=== PATIENT | male | born 1935 | race African-American/Black ===

== ENCOUNTER 2016-11-04 21:39 | Inpatient (IN) ==
[2016-11-04] MEDS ORDERED: amLODIPine 5 MG TABLET PO STA (22:47)
[2016-11-04 22:52] LABS: Basophils % 0.2 % (0.0-0.8); Eosinophils % 0.5 % (0.00-10.9); Hematocrit 35.2 VOL% (42.0-52.0); Hemoglobin 11.5 GM/DL (14.0-18.0); Immature Granulocytes % 0.5 %; Immature Granulocytes Absolute 0.03 #; Lymphocytes # 1.4 10*3/uL (1.4-4.0); Lymphocytes % 23.1 % (21.2-54.2); Mean Corpuscular HGB Conc 32.7 GM/DL (32-36); Mean Corpuscular Hemoglobin 30 PG (27-34); Mean Corpuscular Volume 90.3 FL (87-102); Mean Platelet Volume 10.1 FL (9.6-12.0); Monocytes # 0.9 10*3/uL (0.11-0.8); Monocytes % 14.9 % (1.7-12.7); Neutrophils # 3.7 10*3/uL (1.4-7.4); Neutrophils % 60.8 % (38.7-73.9); Platelet Count 192 T/CUMM (130-400); Red Cell Distribution Width 14.3 % (9.3-17.3)
[2016-11-04] MEDS ORDERED: amLODIPine 5 MG TABLET ONE (23:08)
[2016-11-04 23:10] LABS: Alanine Aminotransferase 18 U/L (16-61); Albumin 3.4 G/DL (3.4-5.0); Alkaline Phosphatase 96 U/L (45-117); Aspartate Amino Transferase 14 U/L (0-37); Bilirubin,Total < 0.39 MG/DL (0.2-1.0); Blood Urea Nitrogen 12 MG/DL (7-18); Glucose 100 MG/DL (74-106); Osmolality,Calculated 276.5 MOS/KG (273-304); Potassium 3.7 MMOL/L (3.5-5.1); Sodium 139 MMOL/L (136-145); Total Protein 7.7 G/DL (6.4-8.3)
[2016-11-04 23:20] LABS: Troponin I Only < 0.015 NG/ML (0.00-0.045)
[2016-11-04 23:43] LABS: Apearance,Urine CLEAR (Clear); Bilirubin,Urine Negative (Negative); Blood, Urine Small mg/dL (Negative); Glucose,Urine (UA) Negative (Negative); Ketones,Urine Negative (Negative); Mucus,Urine Occasional /LPF (Occasional); Nitrite,Urine Negative (Negative); Protein,Urine 30 MG/DL; RBC,Urine 3 /HPF (0-4); Squamous Epithelial Cell,Urine Occasional /HPF (0-10); Urine Color Yellow (Yellow); Urine Specific Gravity 1.017 (1.001-1.035); Urine Urobilinogen < 2.0 EU/DL (0.2-1.0); WBC,Urine <1 /HPF (0-6)
--- NOTE | 2016-11-05 03:01 | Hospitalist History & Physical ---
Assessment and Plan (1) Acute encephalopathy Status: Acute Current Visit: Yes (2) Seizure disorder Status: Acute Current Visit: Yes (3) Hypertension Status: Acute Current Visit: Yes Qualifiers: Hypertension type: essential hypertension Qualified Code(s): I10 - Essential (primary) hypertension (4) Anemia of chronic disease Status: Acute Assessment and plan: Plan: Admit for workup of encephalopathy including TSH, ammonia level. We will also pursue stroke workup, and neurological evaluation Wound care to address the lower extremities Continue Dilantin, currently subtherapeutic level Infectious workup unremarkable thus far Current Visit: Yes History of Present Illness Chief complaint: Brought in by family due to worsening mental status History of present illness: Mr. Nunez is a 81 year old male with hypertension, seizure disorder, who is brought by family due to acute worsening of mental status over the last 2 days. The patient provides no history due to significant drowsiness at the bedside. I spoke with the son who states that prior to 2 days ago the patient was in his "normal state of health." He was able to walk and perform his ADLs without difficulty. For the last 2 days apparently he has been very somnolent, not getting out of the bed, and can barely walk on his own. They deny history of dementia, however they think they may have noticed a slight twisting frame changer the last several months and the way he acts. No report of fever, chills, chest pain , shortness of breath, nausea vomiting or diarrhea. He is not eating very much. He does not complain of pain. No witnessed seizures. He is subtherapeutic on Dilantin. Infectious workup in the ER was largely unremarkable. Review of old CT report shows he may have had lacunar infarcts in the past. Home Medications Medication Instructions Recorded Confirmed Type Metoprolol Tartrate 25 mg PO DAILY 11/04/16 11/05/16 History Phenytoin ER Cap [Dilantin Cap] 100 mg PO QID 11/04/16 11/05/16 History Tamsulosin [Flomax] 0.4 mg PO DAILY 11/04/16 11/05/16 History risperiDONE [Risperidone] 0.25 mg PO DAILY 11/04/16 11/05/16 History Allergies Allergy/AdvReac Type Severity Reaction Status Date / Time No Known Allergies Allergy Verified 11/04/16 21:45 Medical,Surgical,& Family Hx - Medical History Cardio: History of: Hypertension Neurology: History of: Seizures Endocrine: No history of: Diabetes Mellitus (NIDDM) Respiratory: No history of: COPD - Surgical History Additional Surgical History: Denies prior surgery - Family History Family History: Reports;: Family Hypertension - Social History Smoking Status: Never smoker Frequency of Alcohol Use: None Type of Drug Use: None Marital Status: Lives With:: Children Functional capacity: independent ambulation Review of systems: Unable to obtain from patient due to obtundation Exam - Constitutional Vitals: Period Temp Pulse Resp BP Sys/Wen Pulse Ox Last 24 Hr 99.9 F-99.9 F 49-62 16-18 167-215/80-90 96-100 Exam: EXAM: CONSTITUTIONAL: Drowsy, arousable to vocal and tactile stimuli, non toxic, NAD HEENT: Bitemporal wasting, AT, OP benign, EWA, EOMI CV: Bradycardic, regular, no m/g/r RESP: clear B/L, no w/r/r GI: abd soft, NT, ND, +bowel sounds INTEGUMENTARY: Multiple ulcers on the distal right lower extremity in various stages of healing EXTREMITIES: no c/c/e NEURO: no focal deficits PSYCH: unremarkable, A/O x3 Results - Labs CBC & BMP: 11/04/16 22:00 11/04/16 22:00 Lab Results: I have reviewed the past 24 hour labs - Diagnostic Findings Procedure: CT: image reviewed by me, report reviewed by me
[2016-11-05] MEDS ORDERED: MORPHINE 2 MG/1 ML SYRINGE IV PRN (03:02)
[2016-11-05] MEDS ORDERED: ONDANSETRON 4 MG/2 ML VIAL IV PRN (03:02)
[2016-11-05] MEDS ORDERED: ACETAMINOPHEN 325 MG TABLET PO PRN (03:02)
[2016-11-05 03:25] LABS: Barbiturates Screen,Urine Negative (Negative); Benzodiazepines Screen,Urine Negative (Negative); Cannabinoid Screen,Urine Negative (Negative); Opiate Screen,Urine Negative (Negative); Phencyclidine Screen,Urine Negative (Negative)
--- NOTE | 2016-11-05 04:06 | Emergency Department Note ---
IKarla Mantricia, am scribing for, and in the presence of, Sandy Mancini DO 22:52. I, Sandy Mancini DO, personally performed the services described in this documentation, ascribed by Yoanna Acosta in my presence, and it is both accurate and complete . Arrival - Arrival Chief Complaint: Altered Mental Status Stated Complaint: DIZZY/STUMBLING ED Nursing Triage Note: C/O Generalized weakness/stumbling when walking/slurred speech for 2 days per family member. Family member reports that he seems to be getting worse- Reports that this has happened once before when he had a UTI. Pt is nonverbal at time of triage Mode of Arrival: Wheelchair Limitations: No Limitations Source: Patient, Family - History of Present Illness HPI Narrative: Pt is a 81 y/o black male arriving to ED via wheelchair for evaluation of AMS that onset 2 days ago. Family reports that pt has had slurred speech, hallucinations, and generalized weakness. He states that pt has had similar sxs once before when he was Dx with an UTI. Pt has slept all day and has been hard to awaken. Family also reports that pt had a head injury about 8 years ago and has been taken a lot of medications since then. Pt is able to verbalize that he is not in any pain. He has a PMHx of seizures with his last one being a year ago. Pt has had a BM today and has only drank one glass of water. At time of exam, pt's blood pressure is 226/90; he us currently taking Metoprolol. No other complaints were reported to ED. Onset (ago): day(s) Consistency: constant Severity: mild Allergies/Adverse Reactions: Allergies Allergy/AdvReac Type Severity Reaction Status Date / Time No Known Allergies Allergy Verified 11/04/16 21:45 Home Medications: Home Medications Medication Instructions Recorded Confirmed Type Metoprolol Tartrate 25 mg PO DAILY 11/04/16 11/04/16 History Phenytoin ER Cap [Dilantin Cap] 100 mg PO QID 11/04/16 11/04/16 History Tamsulosin [Flomax] 0.4 mg PO DAILY 11/04/16 11/04/16 History risperiDONE [Risperidone] 0.25 mg PO DAILY 11/04/16 11/04/16 History Review of System - Review of System 12 point system: reviewed and no additional remarkable complaints except as stated - Review of System Constitutional: Present: other (AMS) Respiratory: Absent: cough Gastrointestinal: Absent: abdominal pain, nausea, vomiting, diarrhea Genitourinary male: Absent: urgency Neurological: Present: confusion. Absent: headache, weakness, numbness Medical,Surgical,& Family Hx - Medical History Cardio: History of: Hypertension - Social History Smoking Status: Never smoker Frequency of Alcohol Use: None Type of Drug Use: None Exam Vital Signs: Vital Signs Temperature 99.9 F H 11/04/16 22:00 Pulse Rate 51 L 11/05/16 01:30 Respiratory Rate 16 11/05/16 01:30 Blood Pressure 198/90 11/05/16 01:30 O2 Sat by Pulse Oximetry 100 11/05/16 01:30 - General General appearance: alert, in no apparent distress - Head Head exam: Present: atraumatic, normocephalic, normal inspection, other (dent on right side of head) - Eye Eye exam: Present: normal appearance, PERRL, EOMI - ENT ENT exam: Present: normal exam, normal oropharynx, mucous membranes moist, TM's normal bilaterally, normal external ear exam - Neck Neck exam: Present: normal inspection, full ROM, trachea midline. Absent: tenderness - Chest Chest inspection: Present: normal inspection, symmetric chest wall rise. Absent : tenderness - Respiratory Respiratory exam: Present: normal lung sounds bilaterally - Cardiovascular Cardiovascular exam: Present: regular rate, normal rhythm, normal heart sounds - Abdominal Exam Abdominal exam: Present: soft, normal bowel sounds. Absent: distention, tenderness, guarding, rebound - Extremities Exam Extremities exam: Present: normal inspection, full ROM, normal capillary refill. Absent: tenderness, pedal edema - Back Exam Back exam: Present: normal inspection, full ROM. Absent: tenderness - Neurological Exam Neurological exam: Present: alert, oriented X3 (only to person), CN II-XII intact, reflexes normal, other (mild facial droop) - Psychiatric Psychiatric exam: Present: normal affect, normal mood - Skin Skin exam: Present: warm, dry, intact, normal color Course Course Narrative: intiially my concern was CVA vs sepsis (UTI) however labs are unremarkable and CT is normal. considered progressing dementia. Given option to family to take home vs admit overnight for further workup and they report they prefer admission. Hospitalist consulted. Results - Labs CBC & BMP: 11/04/16 22:00 11/04/16 22:00 Lab Results: I have reviewed the patients labs Labs: Laboratory Tests 11/04/16 11/04/16 11/04/16 22:00 22:00 22:00 Hgb 11.5 L Hct 35.2 L Mitchell % (Auto) 14.9 H Mitchell # (Auto) 0.9 H Globulin 4.3 H Albumin/Globulin Ratio 0.7 L Urine Urobilinogen < 2.0 H - EKG EKG results: interpreted by VETO SANCHEZL - Diagnostic Findings Procedure: CT: image reviewed by me, report reviewed by me (CT head unremarkable ) Disposition Clinical Impression: Altered mental status Case discussed with: patient, patient's family Disposition: Still a Patient Condition: Stable
[2016-11-05 05:01] LABS: ABG Base Excess 2.2 MMOL/L (-2.5-2.5); ABG HCO3 26.3 MMOL/L (20-26); ABG Oxygen Saturation 90.3 % (95-100); ABG PH 7.455 (7.35-7.45); ABG PO2 57.8 MM HG (80-95); ABG TCO2 23.5 MMOL/L (23-27); Allen Test Positive; Pt O2 Delivery Device Room Air
[2016-11-05] MEDS: ENOXAPARIN 40 MG/0.4 ML SYRINGE SUBCUT SCH (05:45)
[2016-11-05 06:22] LABS: Basophils % 0.3 % (0.0-0.8); Eosinophils # 0.1 10*3/uL (0.0-0.87); Hematocrit 33.5 VOL% (42.0-52.0); Hemoglobin 10.6 GM/DL (14.0-18.0); Immature Granulocytes % 0.3 %; Immature Granulocytes Absolute 0.02 #; Lymphocytes # 1.5 10*3/uL (1.4-4.0); Mean Corpuscular HGB Conc 31.6 GM/DL (32-36); Mean Corpuscular Hemoglobin 29 PG (27-34); Mean Corpuscular Volume 90.3 FL (87-102); Mean Platelet Volume 9.5 FL (9.6-12.0); Monocytes # 0.8 10*3/uL (0.11-0.8); Monocytes % 13.5 % (1.7-12.7); Neutrophils # 3.5 10*3/uL (1.4-7.4); Neutrophils % 58.9 % (38.7-73.9); Platelet Count 178 T/CUMM (130-400); Red Blood Count 3.71 MC/CUMM (3.8-5.5); Red Cell Distribution Width 14.3 % (9.3-17.3); White Blood Count 5.9 T/CUMM (4-12)
[2016-11-05 07:00] LABS: Calcium 8.7 MG/DL (8.5-10.1); Magnesium 2.1 MG/DL (1.8-2.4); Osmolality,Calculated 276.4 MOS/KG (273-304); Potassium 3.4 MMOL/L (3.5-5.1); Risk Ratio 2.97; Thyroid Stimulating Hormone 1.47 uIU/ml (0.358-3.74); VLDL CHOLESTEROL 12.6 MG/DL
--- NOTE | 2016-11-05 07:27 | CT Report ---
CT head/brain wo con INDICATION: Altered mental status/confusion The total DLP is 914 mGy*cm. COMPARISON: Noncontrast CT head dated 04-11 Technique: Serial axial tomographic images of the brain were obtained without the use of intravenous contrast. Dose reduction: This CT exam was performed using one or more of the following dose reduction techniques: Automated exposure control, automated adjustment of the mA and/or KV according to patient size, or use of iterative reconstruction technique. Findings: Moderate generalized atrophy is noted with mild prominence of the sulci and cortical volume loss. Periventricular white matter hypodensity changes are noted bilaterally which do not demonstrate mass effect and are nonspecific but favored to represent sequela of chronic microvascular ischemia. There is no evidence of vascular territory infarct or acute intracranial hemorrhage. The dominguez-white matter differentiation is generally maintained. There is no hydrocephalus. The basilar cisterns are patent. The visualized paranasal sinuses, mastoid air cells and middle ear cavities are predominantly clear. The included orbits and their contents appear within normal limits. No change in calcification of the right ureter soft tissues, which is nonspecific. The visualized osseous structures and overlying soft tissues of the skull and face demonstrate no acute abnormality. Right frontal maurice hole postsurgical changes appear unchanged. IMPRESSION: No acute intracranial abnormality. Preliminary report by virtual radiologic PROCEDURE INTERPRETED AT [facility] DEPARTMENT OF RADIOLOGY Final Report Signed by: Germán Dillon
[2016-11-05] MEDS: TAMSULOSIN 0.4 MG CAPSULE PO SCH (08:48)
[2016-11-05] MEDS: BISACODYL 5 MG TABLET PO PRN (08:48)
[2016-11-05] MEDS: ASPIRIN EC 81 MG TABLET PO SCH (08:48)
[2016-11-05] MEDS: PANTOPRAZOLE 40 MG TABLET PO SCH (08:48)
[2016-11-05] MEDS: PHENYTOIN ER 100 MG CAPSULE PO SCH ×4 (08:48→21:24)
[2016-11-05] MEDS: risperiDONE 0.25 MG TABLET PO SCH (08:48)
[2016-11-05] MEDS ORDERED: METOPROLOL TARTRATE 25 MG TABLET PO SCH (09:00)
--- NOTE | 2016-11-05 09:58 | EKG Report ---
Stationary ECG Study [facility] ER Test Date: 11/04/2016 10:07:55 PM Pat Name: MIROSLAVA SHARP Department: Room: 532 Gender: M Quencher Operator: ROMAINE REDD : 1935 Requested by: Sandy Mancini Order Number: [id number] Suman MD: FISH JOSEPH Intervals Fellows Rate: 52 P: 73 MD: 162 QRS: 40 QRSD: 102 T: 59 QT: 454 QTc: 433 Interpretive Statements SINUS BRADYCARDIA LEFT VENTRICULAR HYPERTROPHY AND ST-T CHANGE Electronically Signed On 11-05-16 11:45:07 CDT by FISH JOSEPH [email or web address]
--- NOTE | 2016-11-05 11:46 | Magnetic Resonance Report ---
Exam: MR angio head wo con (COW) Date: 11/05/2016 Indication: Possible CVA Comparison: CT brain 11/04/2016. Technical 1.5 Ann magnet. 3-D slab imaging and 3-D reproduction images are obtained through the [place] of [place]. Findings: There is faint visualization of the anterior cerebral A2 segments. The M1 and M2 bifurcation trifurcation regions are intact. The basilar artery and posterior cerebral P1 and P2 segments are intact. The posterior communicating and anterior communicating arteries are nonvisualized. The internal carotid arteries reveal mild dolichoectasia in the carotid siphon region. The basilar artery and vertebral arteries are demonstrated without abnormality. Impression: 1. No obvious aneurysm present. 2. Mild dolichoectasia of the internal carotid arteries without high-grade stenosis or occlusions present. 3. Mild motion artifact does slightly hinder the exam. PROCEDURE INTERPRETED AT [facility] DEPARTMENT OF RADIOLOGY Final Report Signed by: Dr. Robert Ortiz
--- NOTE | 2016-11-05 11:50 | Magnetic Resonance Report ---
Exam: MR angio neck wo/w con Date: 11/05/2016 Indication: Possible CVA Comparison: CT brain Technical 1.5 Ann Axial and coronal 3-D slab imaging obtained. Exam was performed with and without 20 cc of Dotarem administration. 3-D imaging Mip imaging was obtained. Findings: The brachiocephalic artery left common carotid artery and left and right subclavian arteries are patent the vertebral arteries are patent. There is an area of narrowing in the distal right vertebral artery junction. This is markedly better seen than with the noncontrast MR angiogram of the head images. The right common carotid artery, internal and external carotid artery demonstrated. There is an area of plaque within the takeoff of the right internal carotid artery. The distal vessel measures 3.97 mm. The left common carotid artery, internal and external carotid artery demonstrated there is plaque within the takeoff of the internal carotid artery. The distal vessel measures 4.8 mm. Impression: 1. Mild plaque within the takeoff the internal carotid arteries bilaterally this appears to measure less than 50% stenosed bilaterally 2. Stenosis of the distal right vertebral artery suspected PROCEDURE INTERPRETED AT [facility] DEPARTMENT OF RADIOLOGY Final Report Signed by: Dr. Robert Ortiz
--- NOTE | 2016-11-05 11:54 | Magnetic Resonance Report ---
Exam: MR head/brain w and wo con Date: 11/05/2016 Comparison: CT brain 11/04/2016 Indication: CVA Technical: 1.5 Ann magnet Axial T1 pre-and postcontrast, ADC, DWI, FLAIR, gradient echo and FSE T2 Sagittal T1 precontrast, FLAIR Coronal postcontrast T1 Contrast: 20 cc Dotarem Findings: Exam reveals no acute ADC/ diffusion imaging. The brainstem exhibit normal signal characteristics. The cerebellum reveals minimal atrophic changes. The cerebral hemispheres exhibit atrophic changes. Diffuse periventricular subcortical white matter abnormal signal characteristics are present. There is enlargement of ventricles present. No contrast enhancing lesions are present. Considerable motion artifact is present which does hinder the exam.. The corpus callosum is demonstrated with thinning. The seventh and eighth cranial nerves and cerebral pontine angles are intact. The pituitary gland, infundibulum and optic chiasm are intact. The paranasal sinuses exhibit normal signal characteristics. The mastoid sinuses are unremarkable. The globes and intra-and extraconal spaces are unremarkable. Impression: 1. No acute hemorrhage infarction or mass effect 2. Diffuse atrophy of the cerebellum and cerebral hemispheres small vessel ischemic changes present. 3. Motion artifact limits the exam slightly. PROCEDURE INTERPRETED AT [facility] DEPARTMENT OF RADIOLOGY Final Report Signed by: Dr. Robert Ortiz
[2016-11-05 13:28] LABS: Basophils % 0.5 % (0.0-0.8); Eosinophils % 0.7 % (0.00-10.9); Hematocrit 37.7 VOL% (42.0-52.0); Hemoglobin 11.9 GM/DL (14.0-18.0); Immature Granulocytes % 0.7 %; Immature Granulocytes Absolute 0.04 #; Lymphocytes # 1.7 10*3/uL (1.4-4.0); Lymphocytes % 30.1 % (21.2-54.2); Mean Corpuscular HGB Conc 31.6 GM/DL (32-36); Mean Corpuscular Hemoglobin 29 PG (27-34); Mean Corpuscular Volume 92.2 FL (87-102); Mean Platelet Volume 10.4 FL (9.6-12.0); Monocytes # 0.9 10*3/uL (0.11-0.8); Monocytes % 16.4 % (1.7-12.7); Neutrophils % 51.6 % (38.7-73.9); Platelet Count 161 T/CUMM (130-400); Red Blood Count 4.09 MC/CUMM (3.8-5.5); Red Cell Distribution Width 14.7 % (9.3-17.3); White Blood Count 5.7 T/CUMM (4-12)
--- NOTE | 2016-11-05 14:11 | XRay Report ---
Exam: XR chest 1V Date: 11/05/2016 12:12 PM Indication: Hypoxia Comparison: 03/07/2012 Technical: AP portable Findings: Mild cardiomegaly. ASVD is present. Mild interstitial thickening in the perihilar regions with some patchy interstitial infiltrates present bilaterally in the basilar regions and perihilar regions. Lateral marginal osteophytes are present. No pneumothorax. Impression: 1. Cardiomegaly 2. Mild scarring and/or patchy infiltrates present in the perihilar regions bilaterally PROCEDURE INTERPRETED AT [facility] DEPARTMENT OF RADIOLOGY Final Report Signed by: Dr. Robert Ortiz
[2016-11-05 17:28] LABS: Lymphocytes 36 % (20-55); Platelet Estimate Normal; Segmented Neutrophils 57 % (50-85); Total Cells Counted 100
[2016-11-05 17:29] LABS: Burr Cells Few; Ovalocytes Few; Poikilocytosis 1+; Tear Drop Cells Few
[2016-11-05 17:58] LABS: ABG HCO3 26.1 MMOL/L (20-26); ABG PCO2 38.6 MM HG (35-48); ABG PH 7.438 (7.35-7.45); ABG PO2 71.6 MM HG (80-95); ABG TCO2 23.4 MMOL/L (23-27); Allen Test Positive; Pt O2 Delivery Device Room Air
[2016-11-05] MEDS: ROSUVASTATIN 20 MG TABLET PO SCH (21:24)
[2016-11-06] MEDS: ENOXAPARIN 40 MG/0.4 ML SYRINGE SUBCUT SCH (03:49)
--- NOTE | 2016-11-06 07:44 | ECHO Report ---
Kelvin Nunez 11/05/2016 Exam Date: 08:58 Referring Physician: Chitra Gonzáles Technologist: CHHAYA Age: 81 Ht (in): 64 Wt (lb): 142 MExam Location: [facility] Gender: Echo [id number]: Essential (primary) hypertension, AcIndications:[place] encephalopathy, Anemia, Possible CVA BP: 185 / 78 HR: 56 SinusRhythm: GoodTechnical Quality: IMPRESSIONS Normal left ventricular cavity size. Normal left ventricular wall thickness. Left ventricular ejection fraction is estimated at 60%. The right ventricle is normal in size and function. The right atrium is normal in size. The left atrium is normal in size. Mitral valve sclerosis. Aortic valve sclerosis without stenosis. Trace aortic valve regurgitation. Morphologically normal tricuspid valve. Trace tricuspid valve regurgitation. Tricuspid regurgitation velocities suggest a PAP of 54 mmHg. Morphologically normal pulmonic valve. Trace pulmonary valve regurgitation. Normal pericardium without effusion. Normal ascending aorta dimension. MEASUREMENTS (Male / Female) Normal Values 2D ECHO LV Diastolic Diameter PLAX 5.1 cm 4.2 - 5.9 / 3.9 - 5.3 cm LV Systolic Diameter PLAX 3.3 cm LV Fractional Shortening PLAX 35.9 % IVS Diastolic Thickness 1.0 cm 0.6 - 1.0 / 0.6 - 0.9 cm LVPW Diastolic Thickness 1.1 cm 0.6 - 1.0 / 0.6 - 0.9 cm RV Internal Dim ED PLAX 3.1 cm Aortic Root Diameter 3.1 cm LA Systolic Diameter LX 2.8 cm 3.0 - 4.0 / 2.7 - 3.8 cm DOPPLER TR Peak Velocity 330.0 cm/s TR Peak Gradient 43.6 mmHg FINDINGS Left Ventricle Normal left ventricular cavity size. Normal left ventricular wall thickness. Left ventricular ejection fraction is estimated at 60%. Right Ventricle The right ventricle is normal in size and function. Right Atrium The right atrium is normal in size. Left Atrium The left atrium is normal in size. Mitral Valve Mitral valve sclerosis. Aortic Valve Aortic valve sclerosis without stenosis. Trace aortic valve regurgitation. Tricuspid Valve Morphologically normal tricuspid valve. Trace tricuspid valve regurgitation. Tricuspid regurgitation velocities suggest a PAP of 54 mmHg. Pulmonic Valve Morphologically normal pulmonic valve. Trace pulmonary valve regurgitation. Pericardium Normal pericardium without effusion. Aorta Normal ascending aorta dimension. Chuck Navarrete MD (Electronically Signed) 06 November 2016 Final Date: 07:43
[2016-11-06] MEDS: TAMSULOSIN 0.4 MG CAPSULE PO SCH (09:32)
[2016-11-06] MEDS: PANTOPRAZOLE 40 MG TABLET PO SCH (09:33)
[2016-11-06] MEDS: ASPIRIN EC 81 MG TABLET PO SCH (09:33)
[2016-11-06] MEDS: PHENYTOIN ER 100 MG CAPSULE PO SCH ×4 (09:33→21:32)
[2016-11-06] MEDS: BISACODYL 5 MG TABLET PO PRN (09:33)
[2016-11-06] MEDS: risperiDONE 0.25 MG TABLET PO SCH (09:33)
--- NOTE | 2016-11-06 11:48 | Hospitalist Progress Note ---
Assessment and Plan (1) Altered mental status Status: Acute Assessment and plan: Not sure what caused the altered mental status. Patient was well awake and alert yesterday and no distress. He did have a hypoxia based on ABG but he was comfortably on room air. I did repeat ABG which showed oxygen level was better. Blood cultures negative so far no leukocytosis fever chest x-ray seem to be showing no acute infiltrate. MRI and MRA is negative for any significant MR abnormalities. Neurology was consulted and I spoke to Dr. Rodriguez. He apparently had a wrong patient information so was not able to see him. He did go to the record and MRI and asked me to have him follow-up with the clinic on Thursday. Patient has nobody to take care of him at home his in the hospital and she says she will be discharged tomorrow. Patient will be watched overnight. That will also give another day to follow-up on blood cultures Current Visit: Yes (2) Seizure disorder Status: Acute Assessment and plan: No seizure reported. Patient has been on Dilantin. According to he is on Dilantin since 2009 after he suffered a fall and head trauma. I do not see any record here she does not remember the name of the doctor who is been prescribing the medication. He has no seizure in the last few years according to . Patient himself has "" dementia" and unable to really provide much information. Information was all provided by the . Patient to follow with Dr. Rodriguez next week Current Visit: Yes (3) Anemia of chronic disease Status: Acute Assessment and plan: Stable Current Visit: Yes (4) Hypokalemia Status: Acute Assessment and plan: We will give a dose of potassium chloride Current Visit: Yes Hospitalist: Subjective Interval history: Mr. Nunez was admitted with altered mental status. He was reported not eating coming out of bed and somnolent. 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 I saw her actually in the room yesterday and she is with him now. Patient is up dressed and sitting the chair no distress. say he is back to himself he has been walking and without any dyspnea afebrile. Had MRI yesterday did not show any acute hemorrhage infarction or mass-effect. There is diffuse atrophy of the cerebellum and cerebral hemisphere. MRA report also reviewed Exam - Constitutional Vitals: Period Temp Pulse Resp BP Sys/Wen Pulse Ox Last 24 Hr 97.2 F-98.7 F 52-62 18-20 132-154/66-76 92-98 General appearance: no acute distress - Respiratory Respiratory exam: Present: clear to auscultation bilaterally. Absent: rhonchi, stridor - Cardiovascular Cardiovascular exam: Present: regular rate and rhythm. Absent: tachycardia - GI/Abdominal GI/Abdominal exam: Present: normal bowel sounds, soft. Absent: distended, tenderness - Extremities Exam Extremities exam: Present: normal inspection. Absent: edema - Neurological Exam Neurological exam: Present: alert, other (Bilateral equal muscle strength extremities) Results - Labs CBC & BMP: 11/05/16 12:37 11/05/16 06:06 Lab Results: I have reviewed the past 24 hour labs Quality Measures - Stroke Symptom Onset Unknown: Yes
[2016-11-06] MEDS ORDERED: POTASSIUM CHLORIDE 20 MEQ TABLET PO ONE (11:55)
[2016-11-06] MEDS: ROSUVASTATIN 20 MG TABLET PO SCH (21:32)
[2016-11-07] MEDS: ENOXAPARIN 40 MG/0.4 ML SYRINGE SUBCUT SCH (03:22)
[2016-11-07] MEDS: PHENYTOIN ER 100 MG CAPSULE PO SCH ×3 (09:42→17:28)
[2016-11-07] MEDS: PANTOPRAZOLE 40 MG TABLET PO SCH (09:42)
[2016-11-07] MEDS: risperiDONE 0.25 MG TABLET PO SCH (09:42)
[2016-11-07] MEDS: ASPIRIN EC 81 MG TABLET PO SCH (09:42)
[2016-11-07] MEDS: TAMSULOSIN 0.4 MG CAPSULE PO SCH (09:42)
--- NOTE | 2016-11-07 13:16 | Hospitalist Progress Note ---
Assessment and Plan (1) Altered mental status Status: Acute Assessment and plan: The patient remains altered. He is alert and oriented to person only; unable to recite place time her present situation. Requires frequent redirection per staff. I feel that this is indeed the patient's baseline. I encountered the patient in the ED during the admission of his and at that time he was noted to be mildly confused and wandering around the ED. We will continue to monitor and provide safety measures. Current Visit: Yes (2) Anemia of chronic disease Status: Acute Assessment and plan: Hemoglobin and hematocrit noted at 11.9 and 37.7 on November 05, 2016; we will recheck labs in a.m. Current Visit: Yes (3) Seizure disorder Status: Acute Assessment and plan: Dilantin level was noted at 8.6 at the time of admission which was slightly impaired. His Dilantin dose has not been readjusted. Will recheck Dilantin level in a.m. and adjust if needed. Current Visit: Yes Hospitalist: Subjective Interval history: Patient seen and examined; no significant overnight events reported per staff. Patient remains pleasantly confused however redirectable. Exam - Constitutional Vitals: Period Temp Pulse Resp BP Sys/Wen Pulse Ox Last 24 Hr 96.4 F-99.0 F 51-62 16-20 109-165/56-82 93-100 General appearance: normal weight, no acute distress - Head Head exam: Present: normal inspection, normocephalic, atraumatic - Eye Eye exam: Present: EOMI. Absent: conjunctival injection Pupils: Present: EWA, normal accommodation - ENT ENT exam: Present: normal exam, normal external ear exam, normal oropharynx - Neck Neck exam: Present: normal inspection. Absent: lymphadenopathy, meningismus, tenderness, thyromegaly - Respiratory Respiratory exam: Present: clear to auscultation bilaterally. Absent: rales, rhonchi, stridor, wheezes - Cardiovascular Cardiovascular exam: Present: regular rate and rhythm - GI/Abdominal GI/Abdominal exam: Present: normal bowel sounds - Extremities Exam Extremities exam: Present: normal inspection, normal capillary refill, full ROM. Absent: edema - Back Exam Back exam: Present: normal inspection - Neurological Exam Neurological exam: Present: alert, altered - Psychiatric Psychiatric exam: Present: normal affect, normal mood - Skin Skin exam: Present: normal color, warm, dry Results - Labs CBC & BMP: 11/05/16 12:37 11/05/16 06:06 Quality Measures - Stroke Symptom Onset Unknown: Yes
--- NOTE | 2016-11-07 16:40 | Discharge Summary ---
Hospital Course - Hospital Course Hospital Course: His hospitalization included patient admitted for change in mental status. He has history of dementia and had a follow-up CT scan that was unremarkable. Moreover a follow-up MRI of the head showed diffuse atrophy but no acute changes. Moreover, the patient had an echocardiogram that showed an EF approximately 60%. 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 He has been hemodynamically stable. No fevers or chills. No other acute changes. He does require someone watching him and redirecting him due to his underlying dementia. The patient will at times think she needs to go and do work in his house or go to the store. Mr. Nunez's remains hospitalized and is unable to care for him at this time. Mr. Nunez is reached maximal hospitalization is prepared for discharge. His family will be taking care of him while Mrs. Nunez is in the hospital. Diagnosis - Discharge Diagnosis (1) Acute encephalopathy Status: Resolved (2) Seizure disorder Status: Chronic (3) Hypertension Status: Chronic (4) Altered mental status Status: Resolved (5) Anemia of chronic disease Status: Chronic Discharge Plan - Discharge Data Disposition: Disch To Home/Self Care Condition at Discharge: Stable Discharge Diet: advance to your usual diet Activity: resume usual activities as tolerated (Patient needs someone to watch him on a 24-hour basis as he does have dementia) Contact your physician if you experience:: fever over 101 - Discharge Medications New Atorvastatin [Lipitor] 20 mg PO BEDTIME #30 tablet Ranitidine Tab [Zantac Tab] 150 mg PO BID #60 tablet Continue Tamsulosin [Flomax] 0.4 mg PO DAILY risperiDONE [Risperidone] 0.25 mg PO DAILY Metoprolol Tartrate 25 mg PO DAILY Phenytoin ER Cap [Dilantin Cap] 100 mg PO QID - Follow Up or Referral - Forms/Instructions Additional Discharge Instructions: Follow-up with primary provider in 1 week. Exam - Constitutional Vitals: Period Temp Pulse Resp BP Sys/Wen Pulse Ox Last 24 Hr 96.4 F-99.0 F 51-62 16-20 109-165/56-82 95-100 General appearance: under weight - Head Head exam: Present: normal inspection - Eye Pupils: Present: EWA - Neck Neck exam: Present: normal inspection - Respiratory Respiratory exam: Present: clear to auscultation bilaterally - Cardiovascular Cardiovascular exam: Present: regular rate and rhythm - GI/Abdominal GI/Abdominal exam: Present: normal bowel sounds - Extremities Exam Extremities exam: Present: normal inspection, full ROM - Back Exam Back exam: Present: normal inspection - Neurological Exam Neurological exam: Present: alert - Skin Skin exam: Present: normal color, dry Discharge Results Procedures and tests throughout hospitalization: Pending Orders 11/05/16 06:06 Blood Culture Stat 11/07/16 03:00 Urine Culture Stat 11/08/16 04:00 CBC [Comp Blood Count Auto Diff] IN AM CMP [Comprehensive Metabolic Panel] IN AM Magnesium IN AM Phenytoin (Dilantin) IN AM Phosphorous IN AM Labs on day of discharge: Preliminary micro results at discharge 11/05/16 06:06 Blood Culture - Preliminary Blood No growth at 1 day 11/05/16 06:06 Blood Culture - Preliminary Blood No growth at 1 day DS: Provider Date of admission: 11/05/16 03:02 Primary care physician: . No PCP Attending physician on admission: Chucho Lan DO Consults: 11/05/16 03:02 Consult to Physician [CONS] Routine Comment: poss cva Consulting Provider: Robert Rodriguez When should Consulting Provider be notified: In am Person Notified: JENNI Date Notified: 11/05/16 Time Notified: 12:34 Consult Notification Comment: 11/05/16 03:08 Consult to Case Mgmt/Social Srvs [CONS] Routine Reason for Case Mgmt/Social Srvs: Discharge Planning Consult to Occupational Therapy [CONS] Routine Reason for Occupational Therapy: Evaluate and Treat Consult Comment: Stroke Consult to Physical Therapy [CONS] Routine Reason for Physical Therapy: Evaluate and Treat Consult Comment: stroke 11/05/16 04:33 Consult to Wound Care - [place] [CONS] Routine Reason for Wound Care: Wound Care Management Discharging clinician: Lion Newman Jr., MD
[2016-11-07 16:41] VITALS: BP 148/70
== END 2016-11-07 17:27 | disposition home or self-care (01) | DRG 71 ==
LOC: N.ED 21:39 → SUATTDRO 11-05 03:02 → N.EDINP 11-05 03:02 → N.5E 11-05 03:59
PROVIDERS: ADMIT Internal Medicine; ATTEND Internal Medicine Nephrology

== ENCOUNTER 2018-12-11 09:59 | Inpatient (IN) ==
[2018-12-11 11:08] LABS: Basophils % 0.2 % (0.0-0.8); Eosinophils # 0.1 10*3/uL (0.0-0.87); Eosinophils % 1.1 % (0.00-10.9); Hematocrit 34.3 VOL% (42.0-52.0); Hemoglobin 10.7 GM/DL (14.0-18.0); Immature Granulocytes % 0.6 %; Immature Granulocytes Absolute 0.06 #; Lymphocytes # 0.9 10*3/uL (1.4-4.0); Mean Corpuscular HGB Conc 31.2 GM/DL (32-36); Mean Corpuscular Volume 88.9 FL (87-102); Mean Platelet Volume 9.6 FL (9.6-12.0); Monocytes % 9.4 % (1.7-12.7); Neutrophils % 78.7 % (38.7-73.9); Platelet Count 256 T/CUMM (130-400); Red Blood Count 3.86 MC/CUMM (3.8-5.5); Red Cell Distribution Width 15.3 % (9.3-17.3); White Blood Count 9.3 T/CUMM (4-12)
[2018-12-11 11:22] LABS: Alanine Aminotransferase 23 U/L (16-61); Albumin 2.4 G/DL (3.4-5.0); Alkaline Phosphatase 78 U/L (45-117); Aspartate Amino Transferase 29 U/L (0-37); Blood Urea Nitrogen 21 MG/DL (7-18); Calcium 10.1 MG/DL (8.5-10.1); Glucose 107 MG/DL (74-106); Total Protein 8.4 G/DL (6.4-8.3)
[2018-12-11] MEDS ORDERED: LEVOFLOXACIN INJ 500 MG in PREMIX 1 EACH IV STA (11:22)
[2018-12-11] MEDS ORDERED: LEVOFLOXACIN INJ 100 ML IV ONE (11:36)
[2018-12-11 11:41] LABS: Apearance,Urine CLEAR (Clear); Bilirubin,Urine Negative (Negative); Blood, Urine Small mg/dL (Negative); Glucose,Urine (UA) Negative (Negative); Hyaline Casts,Urine 3 /LPF (0-3); Ketones,Urine Negative (Negative); Mucus,Urine Occasional /LPF (Occasional); Nitrite,Urine Negative (Negative); Protein,Urine Negative; RBC,Urine 4 /HPF (0-4); Squamous Epithelial Cell,Urine Occasional /HPF (0-10); Urine Color Yellow (Yellow); Urine Specific Gravity 1.021 (1.001-1.035); WBC,Urine 1 /HPF (0-6)
[2018-12-11] MEDS ORDERED: SODIUM CHLORIDE 0.9% 1,000 ML IV STA (12:12)
[2018-12-11] MEDS ORDERED: ONDANSETRON 4 MG/2 ML VIAL IV PRN (13:40)
[2018-12-11] MEDS ORDERED: ACETAMINOPHEN 325 MG TABLET PO PRN (13:40)
[2018-12-11] MEDS: SODIUM CHLORIDE 0.9% 1,000 ML IV SCH ×2 (15:30→23:02)
[2018-12-11] MEDS: LACTULOSE 20 GM/30 ML UDCUP PO SCH ×3 (15:38→23:03)
[2018-12-11] MEDS: DOCUSATE SODIUM 100 MG CAPSULE PO SCH ×2 (15:38→21:46)
[2018-12-11] MEDS: ENOXAPARIN 40 MG/0.4 ML SYRINGE SUBCUT SCH (21:46)
[2018-12-12] MEDS: LACTULOSE 20 GM/30 ML UDCUP PO SCH ×6 (03:07→21:40)
[2018-12-12 06:11] LABS: Basophils % 0.2 % (0.0-0.8); Eosinophils # 0.1 10*3/uL (0.0-0.87); Eosinophils % 1.6 % (0.00-10.9); Hematocrit 26.3 VOL% (42.0-52.0); Immature Granulocytes % 0.7 %; Immature Granulocytes Absolute 0.06 #; Lymphocytes % 11.5 % (21.2-54.2); Mean Corpuscular HGB Conc 30.4 GM/DL (32-36); Mean Corpuscular Volume 89.5 FL (87-102); Mean Platelet Volume 9.2 FL (9.6-12.0); Monocytes % 10.2 % (1.7-12.7); Neutrophils % 75.8 % (38.7-73.9); Platelet Count 229 T/CUMM (130-400); Red Blood Count 2.94 MC/CUMM (3.8-5.5); Red Cell Distribution Width 15.1 % (9.3-17.3); White Blood Count 8.8 T/CUMM (4-12)
[2018-12-12] MEDS: SODIUM CHLORIDE 0.9% 1,000 ML IV SCH ×3 (06:25→17:11)
[2018-12-12 06:54] LABS: Albumin 1.9 G/DL (3.4-5.0); Bilirubin,Total 0.7 MG/DL (0.2-1.0); Calcium 8.6 MG/DL (8.5-10.1); Osmolality,Calculated 275.7 MOS/KG (273-304); Thyroid Stimulating Hormone 1.32 uIU/ml (0.358-3.74)
[2018-12-12] MEDS: PANTOPRAZOLE 40 MG TABLET PO SCH (09:30)
[2018-12-12] MEDS: DOCUSATE SODIUM 100 MG CAPSULE PO SCH ×2 (09:30→20:47)
[2018-12-12] MEDS: PIPERACILLIN/TAZOBACTAM 3,375 MG in SODIUM CHLORIDE 0.9% 100 ML IV SCH (20:30)
[2018-12-12] MEDS: ENOXAPARIN 40 MG/0.4 ML SYRINGE SUBCUT SCH (20:47)
[2018-12-13] MEDS: VANCOMYCIN INJ 1,000 MG in SODIUM CHLORIDE 0.9% 250 ML IV SCH ×2 (00:46→14:51)
[2018-12-13] MEDS: LACTULOSE 20 GM/30 ML UDCUP PO SCH ×2 (03:00→05:13)
[2018-12-13] MEDS: PIPERACILLIN/TAZOBACTAM 3,375 MG in SODIUM CHLORIDE 0.9% 100 ML IV SCH ×3 (03:01→20:40)
[2018-12-13] MEDS ORDERED: IBUPROFEN 600 MG TABLET PO ONE (04:09)
[2018-12-13 05:00] LABS: Basophils % 0.2 % (0.0-0.8); Eosinophils # 0.1 10*3/uL (0.0-0.87); Eosinophils % 0.7 % (0.00-10.9); Hematocrit 25.9 VOL% (42.0-52.0); Hemoglobin 8.1 GM/DL (14.0-18.0); Immature Granulocytes % 0.7 %; Immature Granulocytes Absolute 0.08 #; Lymphocytes # 0.8 10*3/uL (1.4-4.0); Lymphocytes % 6.5 % (21.2-54.2); Mean Corpuscular HGB Conc 31.3 GM/DL (32-36); Mean Corpuscular Volume 87.5 FL (87-102); Mean Platelet Volume 9.8 FL (9.6-12.0); Monocytes % 6.4 % (1.7-12.7); Neutrophils % 85.5 % (38.7-73.9); Platelet Count 228 T/CUMM (130-400); Red Blood Count 2.96 MC/CUMM (3.8-5.5); Red Cell Distribution Width 15.1 % (9.3-17.3); White Blood Count 12.1 T/CUMM (4-12)
[2018-12-13 05:28] LABS: Calcium 8.7 MG/DL (8.5-10.1); Osmolality,Calculated 276.5 MOS/KG (273-304); Total Protein 7.3 G/DL (6.4-8.3)
[2018-12-13 06:31] LABS: Amorphous Crystals,Urine Occasional /HPF (Few); Apearance,Urine CLEAR (Clear); Bacteria,Urine Occasional /HPF (Few); Bilirubin,Urine Negative (Negative); Blood, Urine Moderate mg/dL (Negative); Glucose,Urine (UA) Negative (Negative); Ketones,Urine Negative (Negative); Mucus,Urine Occasional /LPF (Occasional); Nitrite,Urine Negative (Negative); Protein,Urine Negative; RBC,Urine 8 /HPF (0-4); Squamous Epithelial Cell,Urine Occasional /HPF (0-10); Urine Color Yellow (Yellow); Urine Specific Gravity 1.024 (1.001-1.035); WBC,Urine 2 /HPF (0-6)
[2018-12-13] MEDS ORDERED: SODIUM PHOSPHATE ENEMA 133 ML BOTTLE RECTAL ONE (08:41)
[2018-12-13] MEDS: PANTOPRAZOLE 40 MG TABLET PO SCH (10:44)
[2018-12-13] MEDS: POTASSIUM CHLORIDE 8 MEQ CAPSULE PO SCH (10:44)
[2018-12-13] MEDS: METOPROLOL TARTRATE 25 MG TABLET PO SCH (10:44)
[2018-12-13] MEDS: DOCUSATE SODIUM 100 MG CAPSULE PO SCH ×2 (10:44→20:43)
[2018-12-13] MEDS ORDERED: SORBITOL 30 ML BOTTLE PO ONE (12:10)
[2018-12-13] MEDS ORDERED: BISACODYL 10 MG SUPP RECTAL ONE (12:10)
[2018-12-13] MEDS: HYDROCORTISONE 1% CREAM 28 GM TUBE TOP PRN (17:33)
[2018-12-13] MEDS: SODIUM CHLORIDE 0.9% 1,000 ML IV SCH (18:26)
[2018-12-13] MEDS: ENOXAPARIN 40 MG/0.4 ML SYRINGE SUBCUT SCH (20:43)
[2018-12-13] MEDS: ATORVASTATIN 20 MG TABLET PO SCH (20:43)
[2018-12-14] MEDS: VANCOMYCIN INJ 1,000 MG in SODIUM CHLORIDE 0.9% 250 ML IV SCH ×2 (03:09→15:30)
[2018-12-14] MEDS: PIPERACILLIN/TAZOBACTAM 3,375 MG in SODIUM CHLORIDE 0.9% 100 ML IV SCH ×3 (04:55→22:12)
[2018-12-14] MEDS: METOPROLOL TARTRATE 25 MG TABLET PO SCH (10:04)
[2018-12-14] MEDS: DOCUSATE SODIUM 100 MG CAPSULE PO SCH ×2 (10:04→22:12)
[2018-12-14] MEDS: POTASSIUM CHLORIDE 8 MEQ CAPSULE PO SCH (10:04)
[2018-12-14] MEDS: PANTOPRAZOLE 40 MG TABLET PO SCH (10:10)
[2018-12-14] MEDS: HYDROCORTISONE 1% CREAM 28 GM TUBE TOP PRN (10:16)
[2018-12-14] MEDS: ATORVASTATIN 20 MG TABLET PO SCH (22:12)
[2018-12-15] MEDS: ENOXAPARIN 40 MG/0.4 ML SYRINGE SUBCUT SCH ×2 (00:38→22:56)
[2018-12-15] MEDS ORDERED: VANCOMYCIN INJ 1,250 MG in SODIUM CHLORIDE 0.9% 250 ML IV SCH (02:00)
[2018-12-15] MEDS: PIPERACILLIN/TAZOBACTAM 3,375 MG in SODIUM CHLORIDE 0.9% 100 ML IV SCH ×3 (05:38→20:30)
[2018-12-15 06:02] LABS: Basophils % 0.2 % (0.0-0.8); Eosinophils # 0.2 10*3/uL (0.0-0.87); Eosinophils % 2.6 % (0.00-10.9); Hematocrit 24.9 VOL% (42.0-52.0); Hemoglobin 7.7 GM/DL (14.0-18.0); Immature Granulocytes % 0.9 %; Immature Granulocytes Absolute 0.08 #; Lymphocytes # 1.1 10*3/uL (1.4-4.0); Lymphocytes % 12.5 % (21.2-54.2); Mean Corpuscular HGB Conc 30.9 GM/DL (32-36); Mean Corpuscular Volume 88.3 FL (87-102); Mean Platelet Volume 9.9 FL (9.6-12.0); Monocytes % 9.3 % (1.7-12.7); Neutrophils % 74.5 % (38.7-73.9); Platelet Count 244 T/CUMM (130-400); Red Blood Count 2.82 MC/CUMM (3.8-5.5); Red Cell Distribution Width 15.5 % (9.3-17.3); White Blood Count 8.9 T/CUMM (4-12)
[2018-12-15 06:28] LABS: Calcium 8.8 MG/DL (8.5-10.1)
[2018-12-15] MEDS: DOCUSATE SODIUM 100 MG CAPSULE PO SCH ×2 (10:09→22:56)
[2018-12-15] MEDS: PANTOPRAZOLE 40 MG TABLET PO SCH (10:09)
[2018-12-15] MEDS: POTASSIUM CHLORIDE 8 MEQ CAPSULE PO SCH (10:09)
[2018-12-15] MEDS: METOPROLOL TARTRATE 25 MG TABLET PO SCH ×2 (10:09→22:55)
[2018-12-15] MEDS: SODIUM CHLORIDE 0.9% 1,000 ML IV SCH ×2 (10:19→10:20)
[2018-12-15] MEDS ORDERED: SODIUM CHLORIDE 0.9% 1,000 ML IV PRN (10:49)
[2018-12-15] MEDS: amLODIPine 5 MG TABLET PO SCH (11:13)
[2018-12-15] MEDS ORDERED: POTASSIUM CHLORIDE 20 MEQ TABLET PO ONE (12:00)
[2018-12-15] MEDS: ATORVASTATIN 20 MG TABLET PO SCH (22:55)
[2018-12-16] MEDS: PIPERACILLIN/TAZOBACTAM 3,375 MG in SODIUM CHLORIDE 0.9% 100 ML IV SCH ×2 (04:30→12:38)
[2018-12-16 05:15] LABS: Red Blood Count 3.36 MC/CUMM (3.8-5.5); White Blood Count 9.6 T/CUMM (4-12)
[2018-12-16 05:16] LABS: Basophils % 0.2 % (0.0-0.8); Eosinophils # 0.1 10*3/uL (0.0-0.87); Eosinophils % 1.3 % (0.00-10.9); Eosinophils % 1.4 % (0.00-10.9); Hematocrit 29.7 VOL% (42.0-52.0); Hematocrit 30.1 VOL% (42.0-52.0); Hemoglobin 9.3 GM/DL (14.0-18.0); Immature Granulocytes % 0.9 %; Immature Granulocytes Absolute 0.09 #; Lymphocytes # 1.2 10*3/uL (1.4-4.0); Mean Corpuscular HGB Conc 30.9 GM/DL (32-36); Mean Corpuscular HGB Conc 31.3 GM/DL (32-36); Mean Corpuscular Volume 87.8 FL (87-102); Mean Corpuscular Volume 88.4 FL (87-102); Mean Platelet Volume 9.3 FL (9.6-12.0); Mean Platelet Volume 9.5 FL (9.6-12.0); Monocytes % 11.1 % (1.7-12.7); Monocytes % 11.2 % (1.7-12.7); Neutrophils % 74.2 % (38.7-73.9); Neutrophils % 74.5 % (38.7-73.9); Platelet Count 253 T/CUMM (130-400); Red Blood Count 3.43 MC/CUMM (3.8-5.5); Red Cell Distribution Width 14.9 % (9.3-17.3); White Blood Count 9.6 T/CUMM (4-12)
[2018-12-16 05:48] LABS: % Iron Saturation 28.7 % (18-50); Ferritin 727.8 ng/ml (26-388)
[2018-12-16 05:53] LABS: Folate 4.9 NG/ML (5.4-24.0); Vitamin B12 442 PG/ML (211-911)
[2018-12-16 06:25] LABS: Sedimentation Rate-Westergren 110 MM/HR (0-20)
[2018-12-16] MEDS: SODIUM CHLORIDE 0.9% 1,000 ML IV SCH (08:25)
[2018-12-16 09:08] LABS: Hemoglobin A1 (Alkaline) 97.3 % (96.5-98.5); Hemoglobin A2 (Alkaline) 2.7 % (1.5-3.5)
[2018-12-16] MEDS ORDERED: amLODIPine 5 MG TABLET PO SCH (09:12)
[2018-12-16] MEDS ORDERED: POTASSIUM CHLORIDE 20 MEQ TABLET PO ONE (09:12)
[2018-12-16] MEDS ORDERED: FOLIC ACID 1 MG TABLET PO SCH (09:30)
[2018-12-16] MEDS: POTASSIUM CHLORIDE 8 MEQ CAPSULE PO SCH (09:31)
[2018-12-16] MEDS: DOCUSATE SODIUM 100 MG CAPSULE PO SCH (09:31)
[2018-12-16] MEDS: amLODIPine 5 MG TABLET PO SCH (09:31)
[2018-12-16] MEDS: PANTOPRAZOLE 40 MG TABLET PO SCH (09:32)
[2018-12-16] MEDS: METOPROLOL TARTRATE 25 MG TABLET PO SCH (09:32)
[2018-12-16 16:35] VITALS: BP 116/68
[2018-12-17] MEDS ORDERED: POTASSIUM CHLORIDE 8 MEQ CAPSULE PO SCH (09:00)
== END 2018-12-16 17:28 | disposition home health service (06) | DRG 91 ==
LOC: EDUNIT# → EDBD → N.ED 09:59 → N.EDINP 09:59 → N.5E 15:01 → SUATTDRO 12-13 09:40
PROVIDERS: ADMIT Internal Medicine; ATTEND Hospitalist

== ENCOUNTER 2018-12-20 12:39 | Inpatient (IN) ==
[2018-12-20] MEDS ORDERED: LEVOFLOXACIN INJ 500 MG in PREMIX 1 EACH IV STA (13:42)
[2018-12-20] MEDS ORDERED: SODIUM CHLORIDE 0.9% 1,900 ML IV ONE (13:43)
[2018-12-20 13:52] LABS: Basophils % 0.3 % (0.0-0.8); Hematocrit 37.7 VOL% (42.0-52.0); Hemoglobin 11.5 GM/DL (14.0-18.0); Immature Granulocytes % 0.4 %; Immature Granulocytes Absolute 0.05 #; Lymphocytes # 0.4 10*3/uL (1.4-4.0); Lymphocytes % 3.1 % (21.2-54.2); Mean Corpuscular HGB Conc 30.5 GM/DL (32-36); Mean Corpuscular Volume 89.3 FL (87-102); Mean Platelet Volume 10.2 FL (9.6-12.0); Monocytes % 2.6 % (1.7-12.7); Neutrophils % 93.6 % (38.7-73.9); Platelet Count 322 T/CUMM (130-400); Red Blood Count 4.22 MC/CUMM (3.8-5.5); Red Cell Distribution Width 15.4 % (9.3-17.3); White Blood Count 11.4 T/CUMM (4-12)
[2018-12-20 13:59] LABS: INR 1.2; PT Patient Result 12.7 SECS (9.6-12.2); Partial Thromboplastin Time 22.6 SECS (20.8-36.0)
[2018-12-20 14:19] LABS: Alanine Aminotransferase 54 U/L (16-61); Albumin 1.9 G/DL (3.4-5.0); Alkaline Phosphatase 81 U/L (45-117); Aspartate Amino Transferase 56 U/L (0-37); Blood Urea Nitrogen 26 MG/DL (7-18); Glucose 124 MG/DL (74-106); Osmolality,Calculated 293.7 MOS/KG (273-304); Total Protein 9.2 G/DL (6.4-8.3); Troponin I 0.055 NG/ML (0.00-0.045)
[2018-12-20 14:40] LABS: Lymphocytes 4 % (20-55); Ovalocytes 1+; Platelet Estimate Normal; Segmented Neutrophils 94 % (50-85); Total Cells Counted 100
[2018-12-20 14:41] LABS: Anisocytosis Slight; Microcytosis Slight
[2018-12-20 15:19] LABS: Apearance,Urine CLOUDY (Clear); Bacteria,Urine Occasional /HPF (Few); Bilirubin,Urine Negative (Negative); Blood, Urine Large mg/dL (Negative); Glucose,Urine (UA) Negative (Negative); Ketones,Urine Negative (Negative); Mucus,Urine Occasional /LPF (Occasional); Nitrite,Urine Negative (Negative); Protein,Urine 100 MG/DL; RBC,Urine 37 /HPF (0-4); Squamous Epithelial Cell,Urine Occasional /HPF (0-10); Urine Color Amber (Yellow); Urine Specific Gravity 1.025 (1.001-1.035); WBC,Urine 2 /HPF (0-6)
[2018-12-20] MEDS ORDERED: hydrALAZINE 20 MG/1 ML VIAL IV STA (15:35)
[2018-12-20] MEDS ORDERED: hydrALAZINE 20 MG/1 ML VIAL ONE (15:35)
[2018-12-20] MEDS ORDERED: ONDANSETRON 4 MG/2 ML VIAL IV PRN (16:30)
[2018-12-20] MEDS ORDERED: ACETAMINOPHEN 325 MG TABLET PO PRN (16:30)
[2018-12-20] MEDS ORDERED: MORPHINE 4 MG/1 ML VIAL IV PRN (16:30)
[2018-12-20] MEDS: SODIUM CHLORIDE 0.9% 1,000 ML IV SCH (17:00)
[2018-12-20] MEDS: ENOXAPARIN 40 MG/0.4 ML SYRINGE SUBCUT SCH (17:25)
[2018-12-20] MEDS: AMPICILLIN/SULBACTAM 3,000 MG in SODIUM CHLORIDE 0.9% 100 ML IV SCH (17:54)
[2018-12-21] MEDS: AMPICILLIN/SULBACTAM 3,000 MG in SODIUM CHLORIDE 0.9% 100 ML IV SCH ×4 (01:03→17:44)
[2018-12-21] MEDS: SODIUM CHLORIDE 0.9% 1,000 ML IV SCH (02:19)
[2018-12-21] MEDS: hydrALAZINE 20 MG/1 ML VIAL IV PRN ×3 (02:50→18:18)
[2018-12-21 05:14] LABS: Basophils % 0.2 % (0.0-0.8); Hematocrit 31.8 VOL% (42.0-52.0); Hemoglobin 9.7 GM/DL (14.0-18.0); Immature Granulocytes Absolute 0.14 #; Lymphocytes # 0.7 10*3/uL (1.4-4.0); Lymphocytes % 4.8 % (21.2-54.2); Mean Corpuscular HGB Conc 30.5 GM/DL (32-36); Mean Corpuscular Volume 89.3 FL (87-102); Monocytes % 3.1 % (1.7-12.7); Neutrophils % 90.9 % (38.7-73.9); Platelet Count 271 T/CUMM (130-400); Red Blood Count 3.56 MC/CUMM (3.8-5.5); Red Cell Distribution Width 15.4 % (9.3-17.3); White Blood Count 13.7 T/CUMM (4-12)
[2018-12-21 06:14] LABS: Lymphocytes 6 % (20-55); Metamyelocytes 1 %; Nucleated Red Blood Cells 1 (0-5); Platelet Estimate Normal; Segmented Neutrophils 81 % (50-85); Total Cells Counted 100
[2018-12-21 06:15] LABS: Band Neutrophils 8 % (0-10)
[2018-12-21] MEDS: SODIUM CHLORIDE 0.45% 1,000 ML IV SCH (11:06)
[2018-12-21] MEDS: POTASSIUM CHLORIDE RIDER 10 MEQ in PREMIX 1 EACH IV PRN ×3 (13:15→16:20)
[2018-12-21] MEDS: LABETALOL 20 MG/4 ML SYRINGE IV PRN (15:30)
[2018-12-21] MEDS ORDERED: cloNIDine 0.3 MG/24 HR PATCH TRANSDERM SCH (16:00)
[2018-12-21] MEDS: ENOXAPARIN 40 MG/0.4 ML SYRINGE SUBCUT SCH (17:44)
[2018-12-21] MEDS ORDERED: ALBUTEROL 2.5 MG/3 ML NEB RESP TX PRN (19:56)
[2018-12-21] MEDS: ALBUTEROL/IPRATROPIUM 3 ML NEB RESP TX SCH (20:00)
[2018-12-21] MEDS ORDERED: LEVALBUTEROL 1.25 MG/3 ML NEB RESP TX PRN (22:00)
[2018-12-22] MEDS: AMPICILLIN/SULBACTAM 3,000 MG in SODIUM CHLORIDE 0.9% 100 ML IV SCH ×5 (00:13→23:52)
[2018-12-22] MEDS: SODIUM CHLORIDE 0.45% 1,000 ML IV SCH ×4 (00:15→22:33)
[2018-12-22] MEDS: ALBUTEROL/IPRATROPIUM 3 ML NEB RESP TX SCH ×4 (01:00→18:57)
[2018-12-22 08:05] LABS: Basophils % 0.1 % (0.0-0.8); Hematocrit 30.3 VOL% (42.0-52.0); Hemoglobin 9.3 GM/DL (14.0-18.0); Immature Granulocytes % 0.8 %; Immature Granulocytes Absolute 0.12 #; Lymphocytes # 0.6 10*3/uL (1.4-4.0); Lymphocytes % 3.8 % (21.2-54.2); Mean Corpuscular HGB Conc 30.7 GM/DL (32-36); Mean Corpuscular Volume 89.6 FL (87-102); Mean Platelet Volume 10.9 FL (9.6-12.0); Monocytes % 5.2 % (1.7-12.7); NRBC # 0.02 10*3/uL; Neutrophils % 90.1 % (38.7-73.9); Platelet Count 275 T/CUMM (130-400); Red Blood Count 3.38 MC/CUMM (3.8-5.5); Red Cell Distribution Width 15.9 % (9.3-17.3); White Blood Count 14.6 T/CUMM (4-12)
[2018-12-22 08:22] LABS: Calcium 8.8 MG/DL (8.5-10.1); Osmolality,Calculated 315.2 MOS/KG (273-304)
[2018-12-22 08:26] LABS: Band Neutrophils 5 % (0-10); Hypochromasia 1+; Lymphocytes 2 % (20-55); Ovalocytes Slight; Platelet Estimate Adequate; Segmented Neutrophils 90 % (50-85); Total Cells Counted 100
[2018-12-22] MEDS: ACETAMINOPHEN 650 MG SUPP RECTAL PRN ×3 (10:00→23:04)
[2018-12-22] MEDS: ENOXAPARIN 40 MG/0.4 ML SYRINGE SUBCUT SCH (17:31)
[2018-12-22] MEDS: hydrALAZINE 20 MG/1 ML VIAL IV PRN (18:51)
[2018-12-22] MEDS: LABETALOL 20 MG/4 ML SYRINGE IV PRN (23:48)
[2018-12-23] MEDS: POTASSIUM CHLORIDE RIDER 10 MEQ in PREMIX 1 EACH IV PRN ×3 (00:28→02:38)
[2018-12-23] MEDS: ALBUTEROL/IPRATROPIUM 3 ML NEB RESP TX SCH ×4 (00:41→19:20)
[2018-12-23] MEDS: hydrALAZINE 20 MG/1 ML VIAL IV PRN (04:44)
[2018-12-23] MEDS: AMPICILLIN/SULBACTAM 3,000 MG in SODIUM CHLORIDE 0.9% 100 ML IV SCH ×3 (05:35→21:20)
[2018-12-23 05:59] LABS: Basophils % 0.2 % (0.0-0.8); Hematocrit 28.9 VOL% (42.0-52.0); Hemoglobin 8.8 GM/DL (14.0-18.0); Immature Granulocytes % 1.4 %; Immature Granulocytes Absolute 0.19 #; Lymphocytes # 0.8 10*3/uL (1.4-4.0); Lymphocytes % 5.5 % (21.2-54.2); Mean Corpuscular HGB Conc 30.4 GM/DL (32-36); Mean Corpuscular Volume 91.5 FL (87-102); Mean Platelet Volume 10.6 FL (9.6-12.0); Neutrophils % 86.9 % (38.7-73.9); Platelet Count 220 T/CUMM (130-400); Red Blood Count 3.16 MC/CUMM (3.8-5.5); Red Cell Distribution Width 15.9 % (9.3-17.3); White Blood Count 13.9 T/CUMM (4-12)
[2018-12-23 06:31] LABS: Calcium 8.9 MG/DL (8.5-10.1); Osmolality,Calculated 316.9 MOS/KG (273-304)
[2018-12-23] MEDS: ACETAMINOPHEN 650 MG SUPP RECTAL PRN (09:46)
[2018-12-23] MEDS: SODIUM CHLORIDE 0.45% 1,000 ML IV SCH (13:00)
[2018-12-23] MEDS: ENOXAPARIN 40 MG/0.4 ML SYRINGE SUBCUT SCH (16:34)
[2018-12-23] MEDS: LABETALOL 20 MG/4 ML SYRINGE IV PRN (16:34)
[2018-12-24] MEDS: ALBUTEROL/IPRATROPIUM 3 ML NEB RESP TX SCH ×4 (00:14→20:31)
[2018-12-24] MEDS: SODIUM CHLORIDE 0.45% 1,000 ML IV SCH ×3 (02:49→14:41)
[2018-12-24] MEDS: AMPICILLIN/SULBACTAM 3,000 MG in SODIUM CHLORIDE 0.9% 100 ML IV SCH ×2 (04:06→09:34)
[2018-12-24] MEDS: hydrALAZINE 20 MG/1 ML VIAL IV PRN (09:44)
[2018-12-24] MEDS: LABETALOL 20 MG/4 ML SYRINGE IV PRN (13:39)
[2018-12-24] MEDS: ACETAMINOPHEN 650 MG SUPP RECTAL PRN (13:47)
[2018-12-24] MEDS: PIPERACILLIN/TAZOBACTAM 3,375 MG in SODIUM CHLORIDE 0.9% 100 ML IV SCH ×2 (14:41→21:09)
[2018-12-24] MEDS: ENOXAPARIN 40 MG/0.4 ML SYRINGE SUBCUT SCH (17:07)
[2018-12-25] MEDS: SODIUM CHLORIDE 0.45% 1,000 ML IV SCH ×3 (01:54→17:31)
[2018-12-25] MEDS: ALBUTEROL/IPRATROPIUM 3 ML NEB RESP TX SCH ×4 (01:55→19:12)
[2018-12-25] MEDS: hydrALAZINE 20 MG/1 ML VIAL IV PRN (02:14)
[2018-12-25] MEDS: ACETAMINOPHEN 650 MG SUPP RECTAL PRN (02:22)
[2018-12-25 05:32] LABS: Basophils % 0.2 % (0.0-0.8); Eosinophils % 0.1 % (0.00-10.9); Hematocrit 29.4 VOL% (42.0-52.0); Immature Granulocytes % 3.7 %; Immature Granulocytes Absolute 0.38 #; Lymphocytes # 0.8 10*3/uL (1.4-4.0); Mean Corpuscular HGB Conc 30.6 GM/DL (32-36); Mean Corpuscular Volume 90.5 FL (87-102); Mean Platelet Volume 11.9 FL (9.6-12.0); NRBC # 0.15 10*3/uL; Platelet Count 172 T/CUMM (130-400); Red Blood Count 3.25 MC/CUMM (3.8-5.5); Red Cell Distribution Width 15.6 % (9.3-17.3); White Blood Count 10.4 T/CUMM (4-12)
[2018-12-25 05:43] LABS: Calcium 8.6 MG/DL (8.5-10.1); Osmolality,Calculated 308.4 MOS/KG (273-304)
[2018-12-25] MEDS: PIPERACILLIN/TAZOBACTAM 3,375 MG in SODIUM CHLORIDE 0.9% 100 ML IV SCH ×2 (05:48→16:02)
[2018-12-25] MEDS: POTASSIUM CHLORIDE RIDER 10 MEQ in PREMIX 1 EACH IV PRN ×3 (09:47→14:43)
[2018-12-25] MEDS: ENOXAPARIN 40 MG/0.4 ML SYRINGE SUBCUT SCH (17:30)
[2018-12-26] MEDS: PIPERACILLIN/TAZOBACTAM 3,375 MG in SODIUM CHLORIDE 0.9% 100 ML IV SCH ×4 (00:04→23:27)
[2018-12-26] MEDS: ALBUTEROL/IPRATROPIUM 3 ML NEB RESP TX SCH ×4 (01:04→19:05)
[2018-12-26] MEDS: ACETAMINOPHEN 650 MG SUPP RECTAL PRN (04:30)
[2018-12-26] MEDS: SODIUM CHLORIDE 0.45% 1,000 ML IV SCH (05:43)
[2018-12-26 06:12] LABS: Basophils % 0.1 % (0.0-0.8); Eosinophils % 0.1 % (0.00-10.9); Hematocrit 29.2 VOL% (42.0-52.0); Hemoglobin 8.9 GM/DL (14.0-18.0); Immature Granulocytes % 3.4 %; Immature Granulocytes Absolute 0.35 #; Lymphocytes # 0.7 10*3/uL (1.4-4.0); Lymphocytes % 6.7 % (21.2-54.2); Mean Corpuscular HGB Conc 30.5 GM/DL (32-36); Mean Platelet Volume 12.6 FL (9.6-12.0); Monocytes % 6.3 % (1.7-12.7); NRBC # 0.08 10*3/uL; Neutrophils % 83.4 % (38.7-73.9); Platelet Count 167 T/CUMM (130-400); Red Blood Count 3.21 MC/CUMM (3.8-5.5); Red Cell Distribution Width 15.6 % (9.3-17.3); White Blood Count 10.4 T/CUMM (4-12)
[2018-12-26 06:43] LABS: Calcium 8.9 MG/DL (8.5-10.1); Osmolality,Calculated 303.7 MOS/KG (273-304)
[2018-12-26] MEDS: hydrALAZINE 20 MG/1 ML VIAL IV PRN ×2 (09:21→16:45)
[2018-12-26] MEDS: VANCOMYCIN INJ 1,000 MG in SODIUM CHLORIDE 0.9% 250 ML IV SCH (12:49)
[2018-12-26] MEDS: DEXTROSE 5% NACL 0.45% 1,000 ML IV SCH (12:55)
[2018-12-26] MEDS: ENOXAPARIN 40 MG/0.4 ML SYRINGE SUBCUT SCH (16:45)
[2018-12-27] MEDS: ALBUTEROL/IPRATROPIUM 3 ML NEB RESP TX SCH ×3 (02:14→12:56)
[2018-12-27] MEDS: DEXTROSE 5% NACL 0.45% 1,000 ML IV SCH ×2 (02:39→15:37)
[2018-12-27] MEDS: VANCOMYCIN INJ 1,000 MG in SODIUM CHLORIDE 0.9% 250 ML IV SCH (04:08)
[2018-12-27 05:24] LABS: Basophils % 0.2 % (0.0-0.8); Eosinophils % 0.2 % (0.00-10.9); Hematocrit 27.6 VOL% (42.0-52.0); Hemoglobin 8.4 GM/DL (14.0-18.0); Immature Granulocytes % 2.1 %; Immature Granulocytes Absolute 0.27 #; Lymphocytes # 0.8 10*3/uL (1.4-4.0); Lymphocytes % 5.8 % (21.2-54.2); Mean Corpuscular HGB Conc 30.4 GM/DL (32-36); Mean Corpuscular Volume 91.4 FL (87-102); Mean Platelet Volume 12.5 FL (9.6-12.0); Monocytes % 4.8 % (1.7-12.7); NRBC # 0.09 10*3/uL; Neutrophils % 86.9 % (38.7-73.9); Platelet Count 166 T/CUMM (130-400); Red Blood Count 3.02 MC/CUMM (3.8-5.5); Red Cell Distribution Width 15.7 % (9.3-17.3)
[2018-12-27 06:11] LABS: Calcium 8.4 MG/DL (8.5-10.1); Osmolality,Calculated 304.7 MOS/KG (273-304)
[2018-12-27] MEDS: PIPERACILLIN/TAZOBACTAM 3,375 MG in SODIUM CHLORIDE 0.9% 100 ML IV SCH (07:14)
[2018-12-27] MEDS: LABETALOL 20 MG/4 ML SYRINGE IV PRN (09:09)
[2018-12-27] MEDS ORDERED: LORazepam 2 MG/1 ML VIAL IV PRN (12:33)
[2018-12-27] MEDS ORDERED: MORPHINE 4 MG/1 ML VIAL IV PRN (12:33)
[2018-12-27] MEDS ORDERED: fentaNYL 25 MCG/HR PATCH TRANSDERM SCH (14:00)
[2018-12-27] MEDS ORDERED: ACETAMINOPHEN 650 MG SUPP RECTAL PRN (21:57)
[2018-12-28 08:47] VITALS: BP 169/77
== END 2018-12-28 12:24 | disposition hospice, inpatient (51) | DRG 177 ==
LOC: EDBD → EDUNIT# → N.ED 12:39 → SUATTDRO 16:29 → N.EDINP 16:29 → N.4E 19:18
PROVIDERS: ADMIT Hospitalist; ATTEND Hospitalist

== ENCOUNTER 2018-12-28 12:35 | Inpatient (IN) ==
[2018-12-28] MEDS ORDERED: LORazepam 2 MG/1 ML VIAL IV PRN (13:14)
[2018-12-28] MEDS ORDERED: MORPHINE 4 MG/1 ML VIAL IV PRN (13:14)
[2018-12-28] MEDS ORDERED: ACETAMINOPHEN 650 MG SUPP RECTAL ONE (13:15)
[2018-12-31] MEDS ORDERED: fentaNYL 25 MCG/HR PATCH TRANSDERM SCH (09:00)
== END 2018-12-29 02:08 | disposition expired | DRG 951 ==
LOC: N.4E 12:35
PROVIDERS: ADMIT Hospitalist; ATTEND Hospitalist